=== PATIENT | female | born 1975 | race African-American/Black ===

== ENCOUNTER 2016-12-28 08:54 | Day surgery (SDC) | payer OTHER ==
[~2016-12-28] VITALS: Ht 154.9 cm; Wt 75.0 kg
[~2016-12-28 08:54] MED LIST: IBUPROFEN800 MG PO; PRENATAL TABLE1 EAC3 PO
[2016-12-28 09:21] VITALS: BP 139/81
[2016-12-28 12:59] VITALS: BP 132/83
[2016-12-28 14:13] VITALS: BP 131/77
[2016-12-28 15:30] VITALS: BP 125/58
== END 2016-12-28 16:30 | disposition home or self-care (01) ==
LOC: SDC 08:54
PROC: 0U574ZZ Destruction of Bilateral Fallopian Tubes, Percutaneous Endoscopic Approach (ICD-10-PCS; principal; 2016-12-28)
DX: Z30.2 Encounter for sterilization (principal)
CPT/HCPCS: J0330; J1100; J1170; J1885; J2250; J2405; J2710; J3010